=== PATIENT | male | born 1960 | race Caucasian/White ===

== ENCOUNTER 2024-03-31 14:24 | Emergency (ER) | payer OTHER ==
[~2024-03-31] VITALS: Ht 193 cm; Wt 108.9 kg
[2024-03-31 14:50] VITALS: TEMP 98.4; O2SAT 97
[2024-03-31] MEDS ORDERED: DIAZEPAM 5 MG/ML 2ML SYR IV ONE (18:30)
[2024-03-31] MEDS: MORPHINE SULFATE 4 MG/ML INJ (FOR IV/IM USE) IV STA (18:48)
[2024-03-31] MEDS: ONDANSETRON HCL 4MG/2ML INJ IV STA (18:48)
[2024-03-31 19:01] LABS: BASOPHILS % 0.5 % (0.0-2.0); EOSINOPHILS % 1.2 % (0.0-5.0); HEMATOCRIT. 37.6 % (42.0-52.0); HEMOGLOBIN. 12.8 g/dL (14.0-18.0); LYMPHOCYTES % 26.5 % (20.0-50.0); MEAN CORPUSCULAR HEMOGLOBIN 31.6 pg (28.0-32.0); MEAN CORPUSCULAR HGB CONC 34.1 g/dL (31.0-37.0); MEAN CORPUSCULAR VOLUME 92.7 fL (80.0-94.0); MEAN PLATELET VOLUME 10.7 fl (7.4-10.4); NEUTROPHILS % 58.8 % (40.0-76.0); PLATELET 193 x1000/uL (130-400); RED BLOOD CELL COUNT 4.05 mill/uL (4.7-6.1); RED CELL DISTRIBUTION WIDTH 13.7 % (11.6-14.6); WHITE BLOOD COUNT 5.1 x1000/uL (4.5-11.0)
[2024-03-31 19:06] LABS: CHLORIDE 111 mEq/L (98-107); POTASSIUM 4.1 mEq/L (3.5-5.1); SODIUM 142 mEq/L (136-145)
[2024-03-31 19:07] LABS: CALCIUM 9.8 mg/dL (8.7-10.4); CARBON DIOXIDE 27 mEq/L (21-32)
[2024-03-31 19:12] LABS: CREATININE 0.8 mg/dL (0.6-1.3); GLUCOSE 101 mg/dL (70-105); UREA NITROGEN BLOOD 10 mg/dL (9-23)
[2024-03-31 19:16] LABS: PROTHROMBIN TIME 11.2 sec (9.6-11.0)
[2024-03-31] MEDS ORDERED: OXYC-100 MT (20:17)
[2024-03-31 20:42] VITALS: BP 153/98; PULSE 82; RESP 16
[2024-03-31] MEDS: OXYCODONE HCL/ACETAMINOPHEN 5/325MG TABLET PO ONE (20:42)
== END 2024-03-31 20:44 | disposition home or self-care (01) ==
LOC: ER 15:10
DX: R10.819 Abdominal tenderness, unspecified site (principal); M54.9 Dorsalgia, unspecified; I10 Essential (primary) hypertension; E78.00 Pure hypercholesterolemia, unspecified; Z98.890 Other specified postprocedural states
CPT/HCPCS: 80048; 83690; 85025; 85610; 36415; 74176; 96374; 96375; 99285; J2405; J2270; Z7610 ×3